=== PATIENT | female | born 1960 | race Caucasian/White ===

== ENCOUNTER 2017-01-30 23:00 | Emergency (ER) | payer OTHER ==
[~2017-01-30] VITALS: Ht 157.5 cm; Wt 81.8 kg
[2017-01-30 23:05] VITALS: BP 180/87; PULSE 64; RESP 16; O2SAT 98
--- NOTE | 2017-01-30 23:27 | ED.REPORT ---
HPI-Chest Pain 40 and Over Date of Service Jan 30, 2017 ED Provider: Mayank Camarillo DO The patient is a 57 year old female w/ a hx of anxiety who presents to the ED due to light, right-sided, intermittent, chest pressure for the last month. Associated symptoms include tingling in the right hand and right arm pain. She denies chest pain but describes a "heaviness" in her chest. Pt also mentions high blood pressure while reading at home tonight. She is able to walk without SOB. She comments that she has a lot of anxiety related to family issues. Both her parents have heart disease. Nursing Notes Stated Complaint: TINGLING IN R HAND AND HEAVINESS IN CHEST Chief Complaint: General Complaint Nursing Notes Reviewed: Yes Allergies: Coded Allergies: No Known Allergies (Unverified , 01/30/17) General Time Seen by MD: 23:27 Chief Complaint Chest pressure Hx Obtained From: Patient Arrived By: Walk-in Sudden in Onset?: Yes Onset Occurred: More than a week ago... (1 month) Symptom Duration: Since onset Location: : Chest right Quality: Heaviness, Pressure Radiation: : Does not radiate Recent Healthcare: No recent doctor visit, No recent hospitalization Similar Sx Previous: No Past Medical History Past Medical History denies Past Surgical History denies Family History both parents have heart disease Social History Other Social History: Local resident Ambulatory Status Independent Review of Systems Review of Systems Note: chest pressure Respiratory: Denies: Shortness of breath Cardiovascular: Denies: Chest pain Musculoskeletal: Reports: Extremity pain (right arm) Complete sys rev & neg: except as marked. Physical Exam Initial Vital Signs Vital Signs (First) Date Time Temp Pulse Resp B/P Pulse Ox O2 Delivery O2 Flow Rate FiO2 01/30/17 23:05 36.7 64 16 180/87 98 Room Air Initial VS: Reviewed Head / Eyes: Atraumatic, Normocephalic, PERRL ENT: Mucous membranes moist Extremities: Vascular intact, Neuro intact, No swelling, No tenderness Skin: Warm, Dry General/Constitutional: Awake, Alert, Cooperative, Not toxic appearing extremely anxious Respiratory / Chest: Atraumatic, Breath sounds NL, Breath sounds = bilat Cardiovascular: Heart rate NL, Regular rhythm, Heart sounds NL Abdomen: Atraumatic, Soft, Non-tender, No guarding, No rebound Interpretation & Diagnostics Lab Results Interpretation Result Diagram: 01/31/179901/31/1799 Test 01/31/17 01:00 01/31/17 03:00 White Blood Count 10.7th/mm3 (3.8-10.1) Red Blood Count 4.25mil/mm3 (3.90-5.20) Hemoglobin 12.9g/dL (12.0-15.6) Hematocrit 40.2% (35.0-46.0) Mean Corpuscular Volume 94.6fL (81-100) Mean Corpuscular Hemoglobin 30.4pg (27.0-35.0) Mean Corpuscular Hemoglobin Concent 32.1% (32.0-37.0) Red Cell Distribution Width 13.8% (12.3-15.4) Platelet Count 203bil/L (150-400) Neutrophils (%) (Auto) 72.5% (40-74) Lymphocytes (%) (Auto) 15.8% (14-46) Monocytes (%) (Auto) 6.8% (4-12) Eosinophils (%) (Auto) 4.0% (0-5) Basophils (%) (Auto) 0.6% (0-3) D-Dimer < 0.50mg/L FEU (<0.50) Sodium Level 143mEq/L (134-144) Potassium Level 3.7mEq/L (3.5-5.2) Chloride Level 106mEq/L (97-108) Carbon Dioxide Level 20mmol/L (18-29) Blood Urea Nitrogen 14mg/dL (6-24) Creatinine 0.80mg/dL (0.57-1.00) Estimat Glomerular Filtration Rate 105mL/min (>59) Glucose Level 209mg/dL (60-99) Calcium Level 9.3mg/dL (8.5-10.1) Total Bilirubin 0.2mg/dL (0.0-1.2) Aspartate Amino Transf (AST/SGOT) 17U/L (0-50) Alanine Aminotransferase (ALT/SGPT) 23U/L (0-32) Alkaline Phosphatase 90U/L (25-165) Total Protein 7.1g/dL (6.4-8.4) Albumin 4.3g/dL (3.4-5.0) Hold Baez Top Tube Received (Received) Troponin T 0.010ug/L (0.0-0.011) ECG Interpretation ECG Interpretation: normal ST segments Time: 11:29 Interpreted by: ED physician Normal ECG Interpretation: Normal sinus rhythm ((rate 80)) X-Ray Chest Interpretation Chest Xray Interpretation: IMPRESSION: no acute findings View: Portable Interpretation / Wet Read by: Wet read ED physician Re-Eval/Medical Decision Med Decision/Clinical Course 57-year-old female incredibly low risk atypical chest pain and anxiety. Her heart scores commence with outpatient treatment. Her YUDITH scores also commensurate with outpatient treatment. She has normal EKG and normal serial cardiac enzymes. She does not have any classical anginal symptoms. Nothing about this is remotely concerning for acute coronary syndrome although we considered that and worked her up appropriately. Pulmonary embolus seems unlikely. Aside from her age the emboli rule out criteria were met. D-dimer was negative and she has a low well score. Her while scores a 0. Her pretest probability for pulmonary emboli is very low. D-dimer adequately rules this out. I will discharge her home with a short course of benzodiazepine for anxiety symptoms. Recommend close outpatient follow-up. Time of Eval: 02:40 Re-Evaluation/Progress Note: Pt rechecked. Informed of plan of repeat blood draw. Counseled Regarding: Diagnosis, Lab results, Need for follow-up, When/why to return to ED Discharge & Departure Primary Impression: Chest pain Chest pain type: unspecified Qualified Code: R07.9 - Chest pain, unspecified Additional Impression: Anxiety Disposition: Home Discharge Condition All VS Reviewed: Yes Condition: Stable Additional Instructions: Your EKG and cardiac enzymes were normal. No signs of heart injury. Your blood clot blood test was negative. Your chest x-ray was normal. He did have elevated blood pressure and this needs to be followed up with closely. The cause of your pain is uncertain but it does not seem to be life threatening at this time. You certainly do seem to be suffering from anxiety. For the next 24 hours you may take one half to one of the Ativan every 8 hours as needed for anxiety. I would like you to fill the prescription for Xanax and take one of those every 8 hours as needed for severe anxiety. This medication can be habit forming so use sparingly. Do not consume any alcohol or other sedatives while taking either of these medications. Call your doctor on Thursday to set up a follow-up appointment. There are other medications that can help. I also think that you should consider having a stress test. Referrals: [facility] [employer] Attestation Portion of this note were transcribed by Dayna Martinez. I, Dr. Camarillo, personally performed the history, physical exam, and medical decision-making: I reviewed and confirmed the accuracy for the information in the transcribed note. Signed by: naial Abbott, 01/31/17 0300 copies to: [facility] Mayank Camarillo DO Jan 30, 2017 23:27 Dayna Martinez Jan 30, 2017 23:44
[2017-01-31 01:11] LABS: Mean Corpuscular Hemoglobin 30.4 pg (27.0-35.0)
[2017-01-31 01:14] LABS: BASOPHILS % (AUTO) 0.6 % (0-3); MONOCYTES % (AUTO) 6.8 % (4-12); Mean Corpuscular Volume 94.6 fL (81-100); NEUTROPHILS % (AUTO) 72.5 % (40-74); Platelet Count 203 bil/L (150-400)
[2017-01-31 02:00] LABS: TROPONIN T 0.01 ug/L (0.0-0.011)
[2017-01-31] MEDS ORDERED: _LORazepam 1 mg Tablet PO PRN (02:50)
[2017-01-31 03:01] VITALS: BP 160/98; PULSE 68; RESP 18; O2SAT 95
[2017-01-31 04:00] VITALS: BP 160/98; PULSE 68; RESP 18; O2SAT 95
--- NOTE | 2017-01-31 06:50 | DRSVH ---
PROCEDURE: X-RAY CHEST ONE VIEW, PORTABLE ([id number]) INDICATIONS: chest pain TECHNIQUE: One view of the chest was acquired. COMPARISON: None. FINDINGS: Surgical changes and devices: None. Lungs and pleura: No pleural effusions or pneumothorax. Lungs are clear. Mediastinum: Mediastinal contours appear normal. Heart size is normal. Bones and chest wall: No suspicious bony lesions. Overlying soft tissues appear unremarkable. IMPRESSION: No acute pulmonary process. Dictated by: Alaina Acosta M.D. on 01/31/2017 at 6:48 Approved by: Alaina Acosta M.D. on 01/31/2017 at 6:48
== END 2017-01-31 04:00 | disposition home or self-care (01) ==
LOC: SED 23:00
DX: R07.89 Other chest pain (principal); F41.9 Anxiety disorder, unspecified; M79.641 Pain in right hand; M79.601 Pain in right arm